=== PATIENT | male | born 2000 | race Two or more races ===

== ENCOUNTER → 2021-08-30 | Outpatient (REF) | payer OTHER | LOC: M SFHCPLAZ 13:03 | PROVIDERS: ATTEND Internal Medicine Infectious Disease | DX: R09.81 Nasal congestion (principal) ==

== ENCOUNTER → 2021-08-31 | Outpatient (REF) | payer OTHER | LOC: M SFHCPLAZ 14:33 | PROVIDERS: ATTEND Internal Medicine Infectious Disease | DX: R05.9 Cough, unspecified (principal) ==